=== PATIENT | female | born 2000 | race Caucasian/White ===

== ENCOUNTER 2025-05-05 19:19 | Emergency (ER) | payer MEDICAID | END 2025-05-05 20:12 | disposition left against medical advice (07) | LOC: ER 19:21 | DX: O99.419 Diseases of the circulatory system complicating pregnancy, unspecified trimester (principal); I10 Essential (primary) hypertension; Z53.21 Procedure and treatment not carried out due to patient leaving prior to being seen by health care provider; Z3A.00 Weeks of gestation of pregnancy not specified ==